=== PATIENT | male | born 1960 | race Two or more races ===

== ENCOUNTER 2019-01-10 23:42 | Emergency (ER) | payer SELFPAY ==
[~2019-01-10] VITALS: Ht 182.9 cm; Wt 88.0 kg
[2019-01-10] MEDS ORDERED: MORPHINE SULFATE 4 MG/ML CPJ (NOT FOR IM USE) IV STA (23:48)
[2019-01-10] MEDS ORDERED: SODIUM CHLORIDE 0.9% 1,000 ML IV ONE (23:48)
[2019-01-10] MEDS ORDERED: ONDANSETRON HCL 4MG/2ML INJ IV STA (23:48)
[2019-01-11] MEDS ORDERED: CEFAZOLIN 1000MG PREMIX 50 ML IV ONE
[2019-01-11] MEDS ORDERED: LIDOCAINE HCL/EPINEPHRINE 1%-EPI 1:100,000 30 ML VIAL INFIL ONE
[2019-01-11] MEDS ORDERED: TETANUS, DIPHTHERIA, PERTUSSIS VAC/PF 0.5ML (>7YR OLD) IM ONE
[2019-01-11 00:08] LABS: EOSINOPHILS % 4.2 % (0.0-5.0); HEMATOCRIT. 46.1 % (42.0-52.0); HEMOGLOBIN. 15.3 g/dL (14.0-18.0); LYMPHOCYTES % 43.5 % (20.0-50.0); MEAN CORPUSCULAR HEMOGLOBIN 29.6 pg (28.0-32.0); MEAN PLATELET VOLUME 10.7 fl (7.4-10.4); MONOCYTES % 6.8 % (2.0-8.0); NEUTROPHILS % 44.5 % (40.0-76.0); PLATELET 178 x1000/uL (130-400); RED BLOOD CELL COUNT 5.18 mill/uL (4.7-6.1)
[2019-01-11 00:12] LABS: CHLORIDE 107 mEq/L (98-107)
[2019-01-11 00:15] LABS: PARTIAL THROMBOPLASTIN TIME 23.7 sec (23.4-31.0); PROTHROMBIN TIME 10.5 sec (9.6-11.0)
[2019-01-11] MEDS ORDERED: LIDOCAINE HCL/EPINEPHRINE 1%-EPI 1:100,000 20 ML VIAL INFIL SCH (00:15)
[2019-01-11] MEDS ORDERED: LIDOCAINE HCL 1% 20ML VIAL (Pyxis) INJ ONE (00:21)
[2019-01-11] MEDS ORDERED: ONDANSETRON HCL 4MG/2ML INJ IV ONE (01:15)
[2019-01-11] MEDS ORDERED: SODIUM CHLORIDE 0.9% 1,000 ML IV ONE (01:45)
[2019-01-11] MEDS ORDERED: DIPHENHYDRAMINE 50MG/ML VIAL IV ONE (02:00)
[2019-01-11] MEDS ORDERED: PROCHLORPERAZINE 10MG/2ML VIAL IV PRN (02:00)
[2019-01-11 03:56] VITALS: BP 104/64
== END 2019-01-11 04:00 | disposition short-term general hospital (02) ==
LOC: ER 23:42
DX: S02.32XB Fracture of orbital floor, left side, initial encounter for open fracture (principal); S62.292B Other fracture of first metacarpal bone, left hand, initial encounter for open fracture; S60.511A Abrasion of right hand, initial encounter; X93.XXXA Assault by handgun discharge, initial encounter; Y93.89 Activity, other specified; Y92.89 Other specified places as the place of occurrence of the external cause
CPT/HCPCS: 36415; 70450; 70486; 71260; 73130; 74177; 80053; 82962; 83690; 85025; 85610; 85730; 86850; 86900; 86901; 90471; 90715; 93005; 96365; 96375; 96376; 99291; J0690; J1200; J2270; J2405; J7030; Z7610; J3490